=== PATIENT | female | born 1985 | race Asian ===

== ENCOUNTER 2019-07-12 13:09 | Emergency (ER) | payer OTHER ==
[~2019-07-12] VITALS: Ht 167.6 cm; Wt 94.5 kg
[~2019-07-12 13:09] MED LIST: PREN1TAB80 PO
[2019-07-12] MEDS ORDERED: INSU100V SQ (13:16)
[2019-07-12 13:25] LABS: GLUCOSE,POINT OF CARE 268 MG/DL (70-110)
[2019-07-12] MEDS ORDERED: ACETAMINOPHEN 500 MG TABLET PO ONE (16:15)
[2019-07-12] MEDS ORDERED: LIDOCAINE/PF 2% 5 ML VIAL INJ ONE (16:15)
[2019-07-12 17:09] VITALS: BP 128/80
== END 2019-07-12 17:21 | disposition home or self-care (01) ==
LOC: EMS 13:10
DX: O26.891 Other specified pregnancy related conditions, first trimester (principal); N76.4 Abscess of vulva; E11.9 Type 2 diabetes mellitus without complications; Z3A.08 8 weeks gestation of pregnancy; Z79.4 Long term (current) use of insulin
CPT/HCPCS: 56405; 82962; 87070; 87077; 87186; 87205; 99284; J3490

== ENCOUNTER 2021-12-12 11:09 | Emergency (ER) | payer OTHER ==
[~2021-12-12] VITALS: Ht 167.6 cm; Wt 95.5 kg
[~2021-12-12 11:09] MED LIST changes: +INSU100V SQ
[2021-12-12 11:18] VITALS: BP 127/82
[2021-12-12] MEDS ORDERED: ACETAMINOPHEN 500 MG TABLET PO ONE (12:45)
[2021-12-12] MEDS ORDERED: ONDANSETRON HCL 4 MG TABLET PO ONE (12:45)
[2021-12-12] MEDS ORDERED: IBUPROFEN 600 MG TABLET PO ONE (12:45)
[2021-12-12] MEDS ORDERED: ONDA-104 PO (12:57)
[2021-12-12 13:06] LABS: COVID AG,FIA SOURCE NASOPHARYNGEAL
== END 2021-12-12 13:27 | disposition home or self-care (01) ==
LOC: EMS 11:10
DX: U07.1 COVID-19 (principal); E11.9 Type 2 diabetes mellitus without complications; Z79.4 Long term (current) use of insulin; Z79.899 Other long term (current) drug therapy
CPT/HCPCS: 82962; 87426; 99284; Q0162